=== PATIENT | female | born 1945 | race Caucasian/White ===

== ENCOUNTER → 2016-10-31 | Outpatient (CLI) | payer MEDICARE ==
--- NOTE | 2016-10-31 12:11 | BD ---
EXAMINATION TYPE: MG DEXA axial skeleton. DATE OF EXAM: 10/31/2016 History: M89.9, post menopausal female Comparison prior exam 10/26/2014 Height: 64 Weight: 134 FRAX RISK QUESTIONS: Alcohol (3 or more units per day): no Family History (Parent hip fracture): no Glucocorticoids (More than 3mos): no (Ex: prednisone, prednisolone, methylprednisolone, dexamethasone, and hydrocortisone). History of Fracture in Adulthood: no Secondary Osteoporosis: 1. Type 1 Diabetes: no 2. Hyperthyroidism: no 3. Menopause before 45: hysterectomy age 42 4. Malnutrition: no 5. Chronic liver disease: no Rheumatoid Arthritis: no Current Tobacco Use: occasionally RISK FACTORS HISTORY OF: Family History of Osteoporosis: no Active: yes Diet low in dairy products/other sources of calcium: somewhat Postmenopausal woman: yes Take estrogen and/or progesterone medications: not now How long: age [age] Lost more than 2 inches in height since high school: no Frequent falls: no Poor Health: unsure Hyperparathyroidism: no Adrenal Insufficiency: unsure MEDICATIONS: Prednisone or other steroids: no Thyroid Medications: no Osteoporosis Medications: no Which medication: Fosamax How Long: unsure Additional Medications: omega 3, antifungal Additional History: patient states she was recently told she has beginning Aravind's EXAM MEASUREMENTS: Bone mineral densitometry was performed using the [employer]. Bone mineral density as measured about the Lumbar spine is: ----- L1-L4(G/cm2): 1.078 T Score Values are as follows: ----- L2: -1.3 ----- L3: -0.4 ----- L4: -0.6 ----- L1-L4: -0.8 Bone mineral density has: Increased 0.2% since study of: 10/26/2014 Bone mineral density about the R hip (g/cm2): 0.816 Bone mineral density about the L hip (g/cm2): 0.727 T Score values are as follows: -----R Neck: -1.6 -----L Neck: -2.2 -----R Total: -1.0 -----L Total: -1.4 Bone mineral density has: Increased 1.1% since study of: 10/26/2014 IMPRESSION: NOTE: T-SCORE=SD OF THE YOUNG ADULT MEAN.
== END | disposition home or self-care (01) ==
LOC: RADBDWWP 10:24
PROVIDERS: ATTEND Obstetrics & Gynecology
DX: M89.9 Disorder of bone, unspecified (principal)
CPT/HCPCS: 77080

== ENCOUNTER → 2018-03-21 | Outpatient (CLI) | payer MEDICARE ==
--- NOTE | 2018-03-24 09:35 | MM ---
Reason for exam: additional evaluation requested from prior study. Last mammogram was performed 2 years and 1 month ago. History: Patient is postmenopausal and has history of other cancer at age 64. Pre-pectoral saline implants in both breasts, 1986. Took estrogen for 10 years beginning at age 52. Physical Findings: Nurse did not find any significant physical abnormalities on exam. MG 3D Diag Mammo Imp W/Cad AZIZA Bilateral CC, MLO, and ID view(s) were taken. Prior study comparison: February 08, 2016, left breast MG 3d work up w/cad LT. February 03, 2016, bilateral MG 3d screen mammo imp/cad. The breast tissue is heterogeneously dense. This may lower the sensitivity of mammography. There are bilateral implants redemonstrated. No significant new finding when compared with prior studies. These results were verbally communicated with the patient and result sheet given to the patient on 03/21/18. ASSESSMENT: Benign, BI-RAD 2 RECOMMENDATION: Routine screening mammogram of both breasts in 1 year.
== END | disposition home or self-care (01) ==
LOC: RADMAMWWP 13:17
PROVIDERS: ATTEND Obstetrics & Gynecology
DX: R92.8 Other abnormal and inconclusive findings on diagnostic imaging of breast (principal); Z98.82 Breast implant status
CPT/HCPCS: 77066; G0279; 77062

== ENCOUNTER → 2018-12-23 | Outpatient (CLI) | payer MEDICARE ==
--- NOTE | 2018-12-23 14:03 | BD ---
EXAMINATION TYPE: Axial Bone Density DATE OF EXAM: 12/23/2018 COMPARISON: NONE CLINICAL HISTORY: Postmenopausal female Height: 5 FT 3 IN Weight: 138 FRAX RISK QUESTIONS: Secondary Osteoporosis: Current Tobacco Use: ON OCCASION RISK FACTORS HISTORY OF: Surgery to Spine/Hip(right/left)/Wrist (right/left): GANGLION CYST ON LT WRIST Active: YES Postmenopausal woman: PART HYST AGE 42 Lost more than 2 inches in height since high school: YES MEDICATIONS: Additional Medications: GLAUCOMA MEDS, RESTASIS, CREAM FOR SCARS Additional History: EXAM MEASUREMENTS: Bone mineral densitometry was performed using the [email or web address] System. Bone mineral density as measured about the Lumbar spine is: ----- L1-L4(G/cm2): 1.097 T Score Values are as follows: ----- L2: -1.8 ----- L3: 0.2 ----- L4: -0.2 ----- L1-L4: -0.7 Bone mineral density has: INCREASED 2.0 % since study of: 2016 Bone mineral density about the R hip (g/cm2): 0.827 Bone mineral density about the L hip (g/cm2): 0.756 T Score values are as follows: -----R Neck: -1.5 -----L Neck: -2.0 -----R Total: -1.1 -----L Total: -1.4 Bone mineral density has: DECREASED -0.6 % since study of: 2017 IMPRESSION: Osteopenia (T Score between -2.5 and -1). There is slightly increased risk of fracture and the patient may be considered for treatment. Re-Screen 2-5 years. NOTE: T-SCORE=SD OF THE YOUNG ADULT MEAN.
== END | disposition home or self-care (01) ==
LOC: RADBDWWP 12:22
PROVIDERS: ATTEND Obstetrics & Gynecology
DX: M89.9 Disorder of bone, unspecified (principal); M85.80 Other specified disorders of bone density and structure, unspecified site
CPT/HCPCS: 77080

== ENCOUNTER → 2022-07-31 | Outpatient (CLI) | payer MEDICARE ==
--- NOTE | 2022-07-31 14:17 | CTL ---
EXAMINATION TYPE: CT Low Dose Lung DATE OF EXAM ORDERED: 07/31/2022 HISTORY: Long-term tobacco use.. Lung cancer screening CT DLP: 55.[address] CTDI: 1.6 mGy Automated exposure control for dose reduction was used. SCREENING VISIT: Baseline COMPARISON: None TECHNIQUE: Low dose computed tomography scan was performed through the chest at 1 mm thick sections a nd reconstructed images in multiple planes at 1 mm and [address] DIAGNOSTIC QUALITY: Satisfactory FINDINGS: LUNG NODULES: None. LUNGS: COPD: Severity: None Fibrosis: Severity: Mild bilateral upper lung and posterior superior right lower lobe Lymph nodes: Other findings: RIGHT PLEURAL SPACE: Effusion: None Calcification: None Thickening: None Pneumothorax: None LEFT PLEURAL SPACE: Effusion: None Calcification: None Thickening: None Pneumothorax: None HEART: Heart Size: Normal Coronary Calcification: None Pericardial Effusion: None OTHER FINDINGS: Upper abdomen: Simple-appearing thin-walled cysts scattered throughout the liver. Bony thorax: None Supraclavicular region: None Other: Rim calcified bilateral breast implants are partially imaged IMPRESSION: No significant greater than [address] LUNG RAD AND CT CHEST RECOMMENDATION: Lung-Rad 1 Negative: Continue annual screening with LDCT in 12 months. S Modifier (other clinically significant findings): None
== END | disposition home or self-care (01) ==
LOC: RADCTMAIN 13:19
PROVIDERS: ATTEND Family Medicine
DX: Z12.2 Encounter for screening for malignant neoplasm of respiratory organs (principal); F17.210 Nicotine dependence, cigarettes, uncomplicated; R91.8 Other nonspecific abnormal finding of lung field
CPT/HCPCS: 71271

== ENCOUNTER → 2023-05-16 | Outpatient (CLI) | payer MEDICARE ==
[2023-05-16 19:45] LABS: HCT 45.9 % (37.2-46.3); HGB 14.9 g/dL (12.0-15.0); MCH 28.3 pg (27.0-32.0); MCHC 32.5 g/dL (32.0-37.0); MCV 87.3 FL (80.0-97.0); Mean Platelet Volume 10.3 FL (9.5-12.2); NRBC Per 100 WBC 0 X 10*3/uL (0.00-0.01); Platelet Count 226 X 10*3/uL (140-440); RBC 5.26 X 10*6/uL (4.10-5.20); RDW 13.7 % (11.5-14.5); WBC 6.98 X 10*3/uL (4.50-10.00)
[2023-05-16 19:49] LABS: Appearance,Urine Clear (Clear); Bilirubin,Urine Negative (Negative); Blood,Urine Small (Negative); Color,Urine Yellow (Yellow); Ketones,Urine Negative (Negative); Nitrite,Urine Negative (Negative); PH, Urine 7.5; Specific Gravity,Urine 1.003 (1.001-1.030); Urobilinogen,Urine 0.2 E.U./DL
[2023-05-16 20:12] LABS: Bacteria,Urine None Seen (None Seen)
[2023-05-16 20:16] LABS: Basophils # (A) 0.06 X 10*3/uL (0.00-0.10); Basophils % (A) 0.9 %; Eosinophils # (A) 0.18 X 10*3/uL (0.04-0.35); Eosinophils % (A) 2.6 %; Lymphocytes # (A) 4.17 X 10*3/uL (0.90-5.00); Lymphocytes % (A) 59.7 %; Monocytes # (A) 0.43 X 10*3/uL (0.20-1.00); Monocytes % (A) 6.2 %; Neutrophils # (A) 2.13 X 10*3/uL (1.80-7.70); Neutrophils % (A) 30.5 %; RBC Morphology Normal (Normal)
[2023-05-16 22:04] LABS: BUN/Creat Ratio 21.29 Ratio (12.00-20.00); Blood Urea Nitrogen 14.9 mg/dL (9.0-27.0); Calcium 10.2 mg/dL (8.7-10.3); Carbon Dioxide 26.6 mmol/L (21.6-31.8); Chloride 103 mmol/L (96-109); Glucose 85 mg/dL (70-110); Potassium 4.1 mmol/L (3.5-5.5); Sodium 141 mmol/L (135-145)
== END | disposition home or self-care (01) ==
LOC: LABPAT 14:37
PROVIDERS: ATTEND Urology
DX: Z01.812 Encounter for preprocedural laboratory examination (principal); N36.8 Other specified disorders of urethra
CPT/HCPCS: 36415; 80048; 81001; 85025; 87086

== ENCOUNTER 2023-05-23 05:55 | Day surgery (SDC) | payer MEDICARE ==
[2023-05-16 16:52] VITALS: BMI 23.0
[~2023-05-23 05:55] MED LIST: LIDOCAINE 1% (10MG/ML) FOR IV START INTRADERMA PRN
[2023-05-23] MEDS ORDERED: HYDROmorphone 0.5 MG/0.5 ML SYRINGE IVP PRN (07:00)
[2023-05-23] MEDS ORDERED: MIDAZOLAM 2 MG/2 ML VIAL IV PRN (07:00)
[2023-05-23 07:11] VITALS: TEMP 97.9
[2023-05-23] MEDS: DEXAMETHASONE SOD PHOSPHATE 4 MG/ML 1 ML VIAL IV ONE (07:18)
[2023-05-23] MEDS: LACTATED RINGERS 1,000 ML IV SCH (07:18)
[2023-05-23] MEDS: MIDAZOLAM 2 MG/2 ML VIAL IVP ONE (07:18)
[2023-05-23] MEDS: ONDANSETRON 4 MG/2 ML VIAL IVP ONE (07:18)
[2023-05-23] MEDS ORDERED: PROPOFOL 10 MG/ML 20 ML VIAL IV ONE (07:27)
[2023-05-23] MEDS ORDERED: fentaNYL (PF) 50 MCG/ML 2 ML AMP ONE (07:27)
[2023-05-23] MEDS ORDERED: LIDOCAINE 1% INJ 10MG/ML (20 ML MDV) ONE (07:27)
--- NOTE | 2023-05-23 08:38 | P.OP ---
Date of Procedure: 05/23/23 Preoperative Diagnosis: Urethral prolapse Postoperative Diagnosis: Same, possible urethral caruncle Procedure(s) Performed: Cystoscopy with excision urethral prolapse/caruncle Anesthesia: GERSON Surgeon: Tan Crockett Estimated Blood Loss (ml): 5 Pathology: none sent Condition: stable Disposition: PACU Indications for Procedure: Patient is 78. She has a urethral protrusion consistent with either prolapse or a urethral carbuncle, large she comes for excision Description of Procedure: Patient brought operating suite. Given a general anesthetic. Placed lithotomy position with a sterile prep and drape. Cystoscopy Foroblique lens and 21- Bur[place] sheath identifies urethral protrusion but nothing in the mid or proximal urethra and the bladder is normal endoscopically. I then place a vaginal speculum in the vagina. The labor sewn laterally with 2-0 silk. I grabbed the carbuncle with an Allis clamp. I slowly remove the carbuncle and so the urethra back together mucosa to serosa circumferentially 4-0 silk. End of the procedure there is no active bleeding. A 16-[place] Ken catheters placed. The patient is awakened and returned recovery room good condition. Blood loss is minimal. She tolerated the procedure well be discharged home upon recovery. The catheter be removed next week.
[2023-05-23 09:41] VITALS: BP 127/60; PULSE 60; RESP 18
--- NOTE | 2023-05-24 14:53 | P.GSHP ---
History of Present Illness H&P Date: 05/22/23 78 yo female with symptomatic urethral prolapse who comes for repair with cystoscopy. The risks and complications have been discussed. - Constitutional Constitutional: Denies chills, Denies fever - EENT Eyes: denies blurred vision, denies pain Ears, nose, mouth and throat: Denies headache, Denies sore throat - Cardiovascular Cardiovascular: Denies chest pain, Denies shortness of breath - Respiratory Respiratory: Denies cough, Denies 7 - Gastrointestinal Gastrointestinal: Denies abdominal pain, Denies diarrhea, Denies nausea, Denies vomiting - Genitourinary (Female) Genitourinary: Denies dysuria, Denies hematuria - Genitourinary (Male) Genitourinary: Denies dysuria, Denies hematuria - Musculoskeletal Musculoskeletal: Denies myalgias - Integumentary Integumentary: Denies pruritus, Denies rash - Neurological Neurological: Denies numbness, Denies weakness - Psychiatric Psychiatric: Denies anxiety, Denies depression - Endocrine Endocrine: Denies fatigue, Denies weight change Medications and Allergies Home Medications Medication Instructions Recorded Confirmed Type Ascorbic Acid [Vitamin C] 1,000 mg PO DAILY 05/16/23 05/16/23 History Calcium Citrate/Vitamin D3 1 each PO DAILY 05/16/23 05/16/23 History [Citracal + D Maximum Caplet] Cyanocobalamin (Vitamin B-12) 5,000 mcg PO DAILY 05/16/23 05/16/23 History [Vitamin B-12] Multivitamins, Thera [Multivitamin 1 tab PO DAILY 05/16/23 05/16/23 History (formulary)] Rosuvastatin [Crestor] 10 mg PO DAILY 05/16/23 05/16/23 History Ubidecarenone [Co Q-10] 200 mg PO DAILY 05/16/23 05/16/23 History Vit A/Vit C/Vit E/Zinc/Copper 1 cap PO DAILY 05/16/23 05/16/23 History [ICAPS SOFTGEL] Zinc Gluconate [Zinc] 50 mg PO DAILY 05/16/23 05/16/23 History cycloSPORINE 0.05% OPHTH SOLN 1 applicator BOTH EYES Q12H 05/16/23 05/16/23 History [Restasis] Ketorolac [Toradol] 10 mg PO Q6HR PRN #14 tab 05/23/23 Rx Allergies Allergy/AdvReac Type Severity Reaction Status Date / Time yellow jackets Allergy Anaphylaxis Uncoded 05/23/23 06:55 Surgical - Exam - General well developed, well nourished, no distress - Eyes normal ocular movement, no icteric - ENT no hearing loss, no congestion - Neck no masses, trachea midline - Respiratory normal respiratory effort, clear to auscultation - Abdomen Abdomen: soft, non tender, no guarding, no rigid, no rebound - Genitourinary urethral prolapse, no pelvic or urethral masses. - Integumentary no rash, no abnormal pigmentation - Neurologic no disoriented, no combative - Psychiatric oriented to time, oriented to person, oriented to place, speech is normal, memory intact Assessment and Plan Assessment: Impression: urethral prolapse Plan: excision with repair and cystoscopy
== END 2023-05-23 10:09 | disposition home or self-care (01) ==
LOC: OR 05:55
PROVIDERS: ATTEND Urology
DX: N81.0 Urethrocele (principal); E78.5 Hyperlipidemia, unspecified; F17.200 Nicotine dependence, unspecified, uncomplicated; Z79.899 Other long term (current) drug therapy; Z90.710 Acquired absence of both cervix and uterus; Z91.048 Other nonmedicinal substance allergy status
CPT/HCPCS: 53265; J2250; J1100; J2405; J0690; J2001; J3010; J2704; 88305

== ENCOUNTER → 2023-09-18 | Outpatient (CLI) | payer MEDICARE ==
--- NOTE | 2023-09-18 17:44 | CTL ---
EXAMINATION TYPE: CT Low Dose Lung DATE OF EXAM: 09/18/2023 12:49 PM CLINICAL INDICATION:Female, 78 years old with history of Z12.2 LUNG CANCER SCREENING F17.210 NICOTINE DEPENDENCE; personal hx of tobacco use. 1/2 pack/ day x 40 years. Current smoker. , history of tobac co use. COMPARISON: None. TECHNIQUE: Multiple axial non-contrast scans were obtained from approximately the lung apices through the upper abdomen. Coronal and sagittal reformatted images were obtained. Low dose technique was uti lized. CT DLP: 74.1 mGycm, Automated exposure control for dose reduction was used. CT Contrast: Contrast used: None Oral contrast used: None FINDINGS: ======== Lack of intravenous contrast and low dose technique limits the evaluation of the vascular and soft ti ssue structures. LUNGS: No evidence of pulmonary fibrosis. No evidence of focal consolidation, pneumothorax or pleural effusion. Nodules: RUL: None. RML: None. RLL: Pleural-based scar, right lower lobe, series 11, image 14 stable since 07/31/2022. RACHID: None. LLL: None. AIRWAY: Patent and unremarkable. HEART: Size within normal limits. MEDIASTINUM: No gross evidence of adenopathy. VASCULATURE: No aortic aneurysm. MUSCULOSKELETAL: No acute osseous abnormalities SOFT TISSUES/LYMPH NODES: Unremarkable. LOWER NECK: No significant findings. UPPER ABDOMEN: No acute findings. Benign-appearing liver cysts. IMPRESSION: 1. No clinically significant pulmonary nodules. CT LUNG RAD AND CT CHEST RECOMMENDATION: Lung-Rad 2 Benign Appearance or Behavior: Continue annual sc reening with LDCT in 12 months. S Modifier (other clinically significant findings): None Recommend smoking cessation (if current smoker), or continuation of smoking cessation (if prior smoke r). Annual screening for lung cancer with low-dose computed tomography is recommended in adults ages 55 to 77 years who have a 30 pack-year smoking history and currently smoke or have quit within the pa st 15 years. Screening should be discontinued once a person has not smoked for 15 years or develops a health problem that substantially limits life expectancy or the ability or willingness to have [place] lung surgery. Lung rads 2021 [email or web address]
--- NOTE | 2023-09-20 09:56 | MM ---
Reason for Exam: Screening (asymptomatic). Last mammogram was performed 1 year(s) and 10 month(s) ago. Patient History: Menarche at age 15. First Full-Term at age 19. Hysterectomy at age 42. Postmenopausal. Other cancer, age 64. Estrogen for 10 years from age 52 until age 62. 08/14/2022, Bilateral Implant Removal. 1986, Bilateral Implants. Risk Values: Pina 5 year model risk: 1.3%. NCI Lifetime model risk: 2.6%. Prior Study Comparison: 02/03/2016 Bilateral Screening Mammogram, LOCATED WITHIN [facility]. 02/08/2016 Left Diagnostic Mammogram, LOCATED [facility]IN [facility]. 03/21/2018 Bilateral Diagnostic Mammogram, LOCATED WITHIN [facility]. 02/12/2020 Bilateral Diagnostic Mammogram, Unknown. 11/18/2021 Bilateral Diagnostic Mammogram, Unknown. Tissue Density: The breasts are heterogeneously dense, which may obscure small masses. Findings: Analyzed By CAD. There is no suspicious group of microcalcifications or new suspicious mass in either breast. Overall Assessment: Benign, BI-RAD 2 Management: Screening Mammogram of both breasts in 1 year. . Patient should continue monthly self-breast exams. A clinical breast exam by your physician is recommended on an annual basis. This exam should not preclude additional follow-up of suspicious palpable abnormalities. Note on Pina scores and lifetime risk: 1. A Pina score greater than 3% is considered moderate risk. If this is the case, consider specialist referral to assess eligibility for a risk reducing agent. 2. If overall lifetime risk for the development of breast cancer is 20% or higher, the patient may qualify for future screening with alternating mammogram and breast MRI. Electronically signed and approved by: Linden Paulino M.D. Radiologis
== END | disposition home or self-care (01) ==
LOC: RADCTMAIN 12:31
PROVIDERS: ATTEND Family Medicine
DX: Z12.2 Encounter for screening for malignant neoplasm of respiratory organs (principal); Z12.31 Encounter for screening mammogram for malignant neoplasm of breast; F17.210 Nicotine dependence, cigarettes, uncomplicated; Z78.0 Asymptomatic menopausal state; R92.333 Mammographic heterogeneous density, bilateral breasts
CPT/HCPCS: 71271; 77063; 77067